=== PATIENT | male | born 1965 | race Caucasian/White ===

== ENCOUNTER 2016-07-14 11:38 | Observation (INO) | payer OTHER, MEDICARE, BC ==
[~2016-07-14] VITALS: Ht 170.2 cm; Wt 160.0 kg
[~2016-07-14 11:38] MED LIST: AMLO5TAB22 PO; FLUT1SPR9 EACH NARE; GLIP10TA6 PO; HYDR10SO PO; LANTINJ SQ; LOSA50TA PO; METF1000 PO; METH500T3 PO; METO50TA PO; MOBI15TA PO; NOVOINJ3 SQ; PRAV40 PO; SERT-129 PO; SPIR50TA21 PO; TAB-TAB PO
[2016-07-14] MEDS ORDERED: ASPIRIN 81 MG CHEW TAB CHEW ONE (12:15)
[2016-07-14 12:20] LABS: AUTOMATED NEUTROPHIL # 3.4 TH/MM3 (1.8-7.7); BASOPHIL % 0.4 % (0.0-2.0); EOSINOPHIL # 0.1 TH/MM3 (0-0.4); EOSINOPHIL % 1.8 % (0.0-4.0); HEMATOCRIT 40.7 % (39.0-51.0); HEMO FLAGS DIFF FINAL; LYMPH % 26.3 % (9.0-44.0); LYMPHOCYTE # 1.4 TH/MM3 (1.0-4.8); MEAN CELL VOLUME 88.6 FL (80.0-100.0); MEAN CORPUSCULAR HEMOGLOBIN 29.6 PG (27.0-34.0); MEAN CORPUSCULAR HGB CONC 33.4 % (32.0-36.0); MONO % 8.6 % (0.0-8.0); NEUT % 62.9 % (16.0-70.0); PLATELET COUNT 185 TH/MM3 (150-450); RED BLOOD COUNT 4.59 MIL/MM3 (4.50-5.90); WHITE BLOOD COUNT 5.4 TH/MM3 (4.0-11.0)
[2016-07-14 12:30] LABS: APTT (PATIENT) 22.5 SEC (24.3-30.1); PROTHROMBIN TIME - PATIENT 10.5 SEC (9.8-11.6)
[2016-07-14 12:49] LABS: ANION GAP 11 MEQ/L (5-15); BICARBONATE 23.9 MEQ/L (21.0-32.0); BLOOD UREA NITROGEN 17 MG/DL (7-18); CHLORIDE 96 MEQ/L (98-107); CREATINE KINASE 140 U/L (39-308); GLOMERULAR FILTRATION RATE 60 ML/MIN (>89); SODIUM (NA) 131 MEQ/L (136-145)
[2016-07-14 12:58] LABS: POTASSIUM 4.6 MEQ/L (3.5-5.1)
[2016-07-14 13:11] LABS: CKMB 1.1 NG/ML (0.5-3.6)
--- NOTE | 2016-07-14 13:14 | RADRPT ---
EXAM DATE/TIME: 07/14/2016 11:47 [facility] COMPARISON: No previous studies available for comparison. INDICATIONS : Chest pain, sweating and shortness of breath. MEDICAL HISTORY : Diabetic. SURGICAL HISTORY : Cholecystectomy. GB removed 4 months ago. ENCOUNTER: Initial ACUITY: 2 weeks PAIN SCORE: 4/10 LOCATION: Bilateral chest FINDINGS: A single view of the chest demonstrates the lungs to be symmetrically aerated without evidence of mas s, infiltrate or effusion. The cardiomediastinal contours are unremarkable. Osseous structures are intact. CONCLUSION: 1. No acute findings. No effusion or pneumothorax. Tarik James MD on July 14, 2016 at 13:08 Board Certified Radiologist. This report was verified electronically.
[2016-07-14] MEDS ORDERED: SODIUM CHLOR 0.9% 1000 ML INJ 1,000 ML IV SCH (14:07)
--- NOTE | 2016-07-14 14:07 | PD ---
HPI Chief Complaint: Chest Pain Time Seen by Provider: 14:07 Travel History International Travel<30 days: No Contact w/Intl Traveler<30days: No Traveled to known affect area: No History of Present Illness HPI 51-year-old male with a history of hypertension, hyperlipidemia, diabetes, NILAY presents to the emergency department for evaluation of chest pain. 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 States that the tightness improved when he rested. He states that he was sent here by his physician for evaluation of chest pain. He states that he has had similar episodes of chest tightness for the past month they have become more frequent. States that he has associated lightheadedness, nausea and shortness of breath. He denies any fever, chills, vomiting, diarrhea, constipation, abdominal pain, swelling of the extremities. States that he also has had right lower back pain for the past week, states he was seen at [facility] last week for this back pain and had labs and a CT that were unremarkable. Last stress test was 2 years ago here at our facility. He has never had a cardiac catheterization, denies any history of NM. No other complaints. PFSH Past Medical History Heart Rhythm Problems: No Cancer: No Cardiovascular Problems: Yes (HTN) High Cholesterol: Yes Diabetes: Yes Patient Takes Glucophage: Yes Endocrine: Yes Gastrointestinal Disorders: Yes (BARRETTS ESOPHAGUS, GALLSTONES) Genitourinary: No Hepatitis: No Hiatal Hernia: Yes (REPAIRED) Hypertension: Yes Immune Disorder: No Medical other: Yes (HX FATTY LIVER) Musculoskeletal: Yes (CHRONIC LUMBAR PAIN,) Neurologic: No Psychiatric: Yes Reproductive: No Respiratory: Yes (SLEEP APNEA) Sleep Apnea: Yes (has a cpap machine at home) Thyroid Disease: No Tetanus Vaccination: > 5 Years Past Surgical History Abdominal Surgery: Yes (APPY, HIATAL HERNIA REPAIR) Appendectomy: Yes Body Medical Devices: NONE Cardiac Surgery: No Ear Surgery: No Endocrine Surgery: No Eye Surgery: No Genitourinary Surgery: No Oral Surgery: Yes (TONSILLECTOMY) Thoracic Surgery: No Tonsillectomy: Yes Other Surgery: Yes Social History Alcohol Use: No Tobacco Use: No Substance Use: No Allergies-Medications (Allergen,Severity, Reaction): Coded Allergies: Morphine (Verified Allergy, Severe, 07/14/16) Bee Sting (Verified Allergy, Unknown, 07/14/16) Penicillin (Verified Allergy, Unknown, HIVES , DIFF BREATHING, 07/14/16) Reported Meds & Prescriptions Reported Meds & Active Scripts Active Reported Atorvastatin (Atorvastatin Calcium) 40 Mg Tab 40 Mg PO HS Metoprolol Tartrate 25 Mg Tab 25 Mg PO BID Albuterol Neb (Albuterol Sulfate) 2.5 Mg/3 Ml Neb 2.5 Mg NEB BID PRN While awake Co Q-10 (Coenzyme Q10 (Ubidecarenone)) 200 Mg Cap 200 Mg PO DAILY Curcumin (Turmeric (Curcuma Longa) (Bulk) 1 Pow Pow 1,000 Mg PO DAILY Vitamin D-3 (Cholecalciferol) 1,000 Unit Tab 1,000 Units PO DAILY Aspirin 81 Mg Tabdr 81 Mg PO DAILY C 1000 (Ascorbic Acid) 1,000 Mg Tab 1,000 Mg PO DAILY Cinnamon 500 Mg Tab 1,000 Mg PO DAILY Percocet (Oxycodone-Acetaminophen) 5-325 mg Tab 1 Tab PO Q6H PRN Magnesium 400 Mg Tab 800 Mg PO DAILY Fish Oil 1000 mg ([place]-3 Fatty Acids) 1 Cap Cap 1,000 Mg PO DAILY Vitamin E 1,000 Unit Cap 1,000 Units PO DAILY B-12 (Cyanocobalamin) 100 Mcg Tab 400 Mcg PO DAILY Voltaren Topical (Diclofenac Topical) 1% Gel 4 Gm TOPICAL HS Spironolactone 50 Mg Tab 50 Mg PO DAILY Cymbalta DR (Duloxetine HCl) 60 Mg Capdr 60 Mg PO BID Novolog Inj (Insulin Aspart) 1,000 Unit/10 Ml Vial 35 Units SQ TIDAC Multi Vitamin (Multiple Vitamin) 1 Tab Tab 1 Tab PO DAILY Lortab (Hydrocodone-Acetaminophen) 10-325 Mg Tab 1 Tab PO Q4H PRN Metformin ER (Metformin HCl) 1,000 Mg Archie 1,000 Mg PO BID With evening meal Robaxin (Methocarbamol) 500 Mg Tab 1,000 Mg PO TID Mobic (Meloxicam) 15 Mg Tab 15 Mg PO DAILY Losartan (Losartan Potassium) 100 Mg Tab 200 Mg PO DAILY Lantus Solostar Pen Inj (Insulin Glargine) 300 Unit/3 Ml Pen 45 Units SQ HS Flonase Allergy Relief Nasal [place] (Fluticasone Nasal [place]) 50 Mcg/Act [place] 1 [place] EACH NARE BID Amlodipine (Amlodipine Besylate) 10 Mg Tab 10 Mg PO DAILY Review of Systems Except as stated in HPI: all other systems reviewed are Neg Physical Exam Narrative GENERAL: Morbidly obese male patient in no acute distress. SKIN: Warm and dry. HEAD: Normocephalic and atraumatic. EYES: No injection, drainage, or hyphema noted. PERRLA. EOMI. ENT: No nasal drainage noted. Oropharynx is clear. NECK: Supple and the trachea is midline. CARDIOVASCULAR: Regular rate and rhythm. RESPIRATORY: Breath sounds are equal bilaterally with no accessory muscle use, wheezing, rhonchi, or crackles. GASTROINTESTINAL: Abdomen is soft, non-tender, and nondistended. MUSCULOSKELETAL: No obvious deformities, swelling, cyanosis, or ecchymosis is present throughout the upper and lower extremities. Patient has full range of motion without any signs of neurovascular compromise. BACK: Mild tenderness to palpation of right lumbar paraspinal muscle region. No obvious deformities, bony point tenderness, or crepitus noted throughout the thoracic and lumbar vertebrae. NEUROLOGICAL: Awake, alert, and oriented. Normal speech and gait. Cranial nerves are grossly intact. Data Data Last Documented VS Vital Signs Date Time Temp Pulse Resp B/P Pulse Ox O2 Delivery O2 Flow Rate FiO2 07/14/16 15:45 98.6 64 18 134/72 98 Room Air Orders Electrocardiogram (07/14/16 11:44) Complete Blood Count With Diff (07/14/16 11:44) Basic Metabolic Panel (Bmp) (07/14/16 11:44) Ckmb (Isoenzyme) Profile (07/14/16 11:44) Troponin I (07/14/16 11:44) Chest, Single Ap (07/14/16 11:44) B-Type Natriuretic Peptide (07/14/16 11:56) Magnesium (Mg) (07/14/16 11:56) Prothrombin Time / Inr (Pt) (07/14/16 11:56) Act Partial Throm Time (Ptt) (07/14/16 11:56) Aspirin Chew (Aspirin Chew) (07/14/16 12:15) CKMB (07/14/16 12:03) CKMB% (07/14/16 12:03) Lipase (07/14/16 14:06) Insulin Human Regular Inj (Novolin R Inj (07/14/16 14:15) Insulin Aspart Inj (Novolog Inj) (07/14/16 14:15) Sodium Chlor 0.9% 1000 Ml Inj (Ns 1000 M (07/14/16 14:07) Aspirin Chew (Aspirin Chew) (07/14/16 14:15) Ondansetron Inj (Zofran Inj) (07/14/16 14:30) Acetamin-Hydrocod 325-10 Mg ([place] 10-32 (07/14/16 15:45) Labs Laboratory Tests Test 07/14/16 12:03 White Blood Count 5.4 TH/MM3 Red Blood Count 4.59 MIL/MM3 Hemoglobin 13.6 GM/DL Hematocrit 40.7 % Mean Corpuscular Volume 88.6 FL Mean Corpuscular Hemoglobin 29.6 PG Mean Corpuscular Hemoglobin 33.4 % Concent Red Cell Distribution Width 14.0 % Platelet Count 185 TH/MM3 Mean Platelet Volume 9.5 FL Neutrophils (%) (Auto) 62.9 % Lymphocytes (%) (Auto) 26.3 % Monocytes (%) (Auto) 8.6 % Eosinophils (%) (Auto) 1.8 % Basophils (%) (Auto) 0.4 % Neutrophils # (Auto) 3.4 TH/MM3 Lymphocytes # (Auto) 1.4 TH/MM3 Monocytes # (Auto) 0.5 TH/MM3 Eosinophils # (Auto) 0.1 TH/MM3 Basophils # (Auto) 0.0 TH/MM3 CBC Comment DIFF FINAL Differential Comment Prothrombin Time 10.5 SEC Prothromb Time International 1.0 RATIO Ratio Activated Partial 22.5 SEC Thromboplast Time Sodium Level 131 MEQ/L Potassium Level 4.6 MEQ/L Chloride Level 96 MEQ/L Carbon Dioxide Level 23.9 MEQ/L Anion Gap 11 MEQ/L Blood Urea Nitrogen 17 MG/DL Creatinine 1.26 MG/DL Estimat Glomerular Filtration 60 ML/MIN Rate Random Glucose 390 MG/DL Calcium Level 9.5 MG/DL Magnesium Level 1.7 MG/DL Total Creatine Kinase 140 U/L Creatine Kinase MB 1.1 NG/ML Troponin I LESS THAN 0.02 NG/ML B-Type Natriuretic Peptide 14 PG/ML Lipase 238 U/L MDM Medical Decision Making Medical Screen Exam Complete: Yes Emergency Medical Condition: Yes Differential Diagnosis ACS versus angina versus pleurisy versus hyperglycemia versus dehydration Narrative Course 51-year-old male presents to the emergency department for evaluation of chest tightness with exertion. Patient is afebrile, vital signs are stable. Labs were done per protocol in triage. EKG shows normal sinus rhythm with no acute ST elevations or depressions. CBC is unremarkable. CMP shows hyperglycemia with a glucose of 390. Troponin is less than 0.02. Coags are unremarkable. Lipase is within normal limits. Patient is given 6 units of regular insulin IV, 10 units of insulin aspart subcutaneously and a liter of fluid. He is also given aspirin and Zofran. Patient's blood sugar has come down to 290. He has remained stable and without complaint while here in the ED. He will be admitted to chest pain center for repeat EKG's, cardiac enzymes and possible stress testing. I discussed the case with my attending physician Dr. Schroeder who is aware of the patients history, physical examination findings, and treatment plan. Diagnosis Primary Impression: Chest pain Qualified Code: R07.9 - Chest pain, unspecified type Additional Impression: Poorly controlled diabetes mellitus Admitting Information Admitting Physician Requests: Sally Sanders Jul 14, 2016 14:07
[2016-07-14] MEDS ORDERED: ASPIRIN 81 MG CHEW TAB PO ONE (14:15)
[2016-07-14] MEDS ORDERED: INSULIN HUMAN REGULAR 1,000 UNITS/10 ML VIAL IV PUSH ONE (14:15)
[2016-07-14] MEDS ORDERED: INSULIN ASPART 1,000 UNITS/10 ML VIAL SQ ONE (14:15)
[2016-07-14] MEDS ORDERED: ONDANSETRON HCL 4 MG/2 ML VIAL IV PUSH ONE (14:30)
[2016-07-14] MEDS ORDERED: ROBA500T PO (14:44)
[2016-07-14] MEDS ORDERED: METF-382 PO (14:44)
[2016-07-14] MEDS ORDERED: MOBI15TA PO (14:44)
[2016-07-14] MEDS ORDERED: AMLO10TA2 PO (14:44)
[2016-07-14] MEDS ORDERED: LANTINJ SQ (14:44)
[2016-07-14] MEDS ORDERED: LOSA100T PO (14:44)
[2016-07-14] MEDS ORDERED: FLUT1SPR5 EACH NARE (14:44)
[2016-07-14] MEDS ORDERED: MULT-135 PO (14:48)
[2016-07-14] MEDS ORDERED: HYDR-3535 PO (14:48)
[2016-07-14] MEDS ORDERED: NOVOLOGP2 SQ (14:48)
[2016-07-14] MEDS ORDERED: OMEG100037 PO (14:54)
[2016-07-14] MEDS ORDERED: PERC5TAB12 PO (14:54)
[2016-07-14] MEDS ORDERED: CYMB60CA PO (14:54)
[2016-07-14] MEDS ORDERED: DICL1GEL TOPICAL (14:54)
[2016-07-14] MEDS ORDERED: MAGN1TAB14 PO (14:54)
[2016-07-14] MEDS ORDERED: VITA10006 PO (14:54)
[2016-07-14] MEDS ORDERED: B-12100T PO (14:54)
[2016-07-14] MEDS ORDERED: SPIR50TA PO (14:54)
[2016-07-14] MEDS ORDERED: [UNRECOGNIZED DRUG - CODE] PO (14:56)
[2016-07-14] MEDS ORDERED: CINN500T PO (14:56)
[2016-07-14] MEDS ORDERED: CO Q200C PO (14:58)
[2016-07-14] MEDS ORDERED: VITA10003 PO (14:58)
[2016-07-14] MEDS ORDERED: CURCPOW PO (14:58)
[2016-07-14] MEDS ORDERED: ASPI1TAB69 PO (14:58)
[2016-07-14] MEDS ORDERED: ALBU0.08 NEB (14:59)
[2016-07-14] MEDS ORDERED: METO25TA3 PO (15:00)
[2016-07-14] MEDS ORDERED: ATOR40TA16 PO (15:01)
[2016-07-14 15:45] VITALS: BP 134/72; TEMP 98.6; O2SAT 98
[2016-07-14] MEDS ORDERED: ACETAMINOPHEN/HYDROcodone 325 MG/10 MG TAB PO ONE (15:45)
--- NOTE | 2016-07-14 16:19 | EKG ---
Date Performed: 07/14/2016 Time Performed: 11:46:15 PTAGE: 51 years EKG: Sinus rhythm NORMAL ECG NO SIGNIFICANT CHANGE FROM PRIOR ELECTROCARDIOGRAM. PREVIOUS TRACING : 12/16/2015 10.16 DOCTOR: Delfino Richardson Interpretating Date/Time 07/14/2016 16:19:06
[2016-07-14] MEDS ORDERED: GLUCAGON 1 MG/ML VIAL IM/SQ PRN (16:30)
[2016-07-14] MEDS ORDERED: ALPRAZolam 0.25 MG TAB PO PRN (16:30)
[2016-07-14] MEDS ORDERED: ACETAMINOPHEN/HYDROcodone 325 MG/10 MG TAB PO PRN (16:30)
[2016-07-14] MEDS ORDERED: SODIUM CHLORIDE 0.9% FLUSH 5 ML FLUSH IVF PRN (16:30)
[2016-07-14] MEDS ORDERED: DEXTROSE 50% IN WATER 50 ML VIAL(D50) IV PRN (16:30)
[2016-07-14] MEDS ORDERED: ACETAMINOPHEN 500 MG CPLT PO PRN (16:30)
[2016-07-14 17:57] LABS: CREATINE KINASE 143 U/L (39-308)
[2016-07-14 18:09] LABS: CKMB 0.9 NG/ML (0.5-3.6)
[2016-07-14] MEDS: INSULIN ASPART SUPPLEMENTAL SCALE SQ SCH (18:25)
[2016-07-14 18:42] LABS: BLOOD, URINE NEG (NEG); COMMENT (UR) CULT NOT INDICATED; CULTURE IF INDICATED CULT NOT INDICATED; GLUCOSE,URINE 1000 mg/dL (NEG); KETONE, URINE NEG (NEG); NITRITE,URINE NEG (NEG); SQUAMOUS EPITHELIAL CELL URINE <1 /hpf (0-5); URINE COLOR LIGHT-YELLOW (YELLW/STRAW)
[2016-07-14 19:30] VITALS: BP 139/73; PULSE 70; RESP 18; TEMP 96.4; O2SAT 95
[2016-07-14 19:56] VITALS: PULSE 65
[2016-07-14] MEDS: METHOCARBAMOL 500 MG TAB PO SCH (20:55)
[2016-07-14] MEDS: SODIUM CHLORIDE 0.9% FLUSH 5 ML FLUSH IVF SCH (20:55)
[2016-07-14] MEDS: DULoxetine HCl DR 60 MG CAP PO SCH (20:55)
[2016-07-14] MEDS: METOPROLOL TARTRATE 25 MG TAB PO SCH (20:56)
[2016-07-14] MEDS: ONDANSETRON HCL 4 MG/2 ML VIAL IV PRN (20:56)
[2016-07-14] MEDS ORDERED: ALPRAZolam 0.5 MG TAB PO ONE (21:00)
[2016-07-14] MEDS ORDERED: traMADol HCL 50 MG TAB PO ONE (21:00)
[2016-07-14] MEDS ORDERED: ATORVASTATIN 40 MG TAB PO SCH (21:00)
[2016-07-14 22:33] VITALS: PULSE 63
[2016-07-14 23:55] VITALS: BP 135/78; PULSE 55; RESP 18; TEMP 95.4; O2SAT 98
[2016-07-15 02:23] VITALS: PULSE 54
[2016-07-15 04:24] VITALS: BP 134/72; PULSE 56; RESP 18; TEMP 96; O2SAT 98
[2016-07-15 05:14] LABS: CREATINE KINASE 70 U/L (39-308)
[2016-07-15] MEDS: INSULIN ASPART SUPPLEMENTAL SCALE SQ SCH (06:27)
[2016-07-15 07:59] VITALS: BP 117/59; PULSE 60; RESP 18; TEMP 97.7; O2SAT 97
[2016-07-15 08:00] VITALS: PULSE 55
[2016-07-15] MEDS ORDERED: SODIUM CHLOR 0.9% 1000 ML INJ 1,000 ML IV SCH (08:00)
--- NOTE | 2016-07-15 08:02 | EKG ---
Date Performed: 07/14/2016 Time Performed: 15:39:14 PTAGE: 51 years EKG: Sinus rhythm NORMAL ECG Since PREVIOUS TRACING , no significant change noted PREVIOUS TRACIN07/14/2016 11.46 DOCTOR: Swetha Leung Interpretating Date/Time 07/15/2016 08:00:29
--- NOTE | 2016-07-15 08:02 | EKG ---
Date Performed: 07/14/2016 Time Performed: 19:58:31 PTAGE: 51 years EKG: Sinus rhythm NORMAL ECG Since PREVIOUS TRACING , no significant change noted PREVIOUS TRACIN07/14/2016 15.39 DOCTOR: Swetha Leung Interpretating Date/Time 07/15/2016 08:01:08
[2016-07-15] MEDS: METOPROLOL TARTRATE 25 MG TAB PO SCH (08:03)
[2016-07-15] MEDS: METHOCARBAMOL 500 MG TAB PO SCH (08:09)
[2016-07-15] MEDS: DULoxetine HCl DR 60 MG CAP PO SCH (08:14)
[2016-07-15] MEDS: SODIUM CHLORIDE 0.9% FLUSH 5 ML FLUSH IVF SCH (08:16)
--- NOTE | 2016-07-15 08:43 | MH ---
cc: JOSE LUIS SWANN MD DATE OF ADMISSION: 07/14/2016 CHIEF COMPLAINT: Chest pain. HISTORY OF PRESENT ILLNESS: This is a 51 year-old male who presents to the emergency department with complaints of chest discomfort and shortness of breath. The patient had a history of hypertension, hyperlipidemia, uncontrolled diabetes. He states that for the last two weeks he has had left sided dull discomfort. Since that time he has also become a little tight. It lasts about 30 minutes. He initially stated that it is not exertional but states that it will also occur when he is pushing a vacuum or such. But states that it is nothing really exertional. He is short of breath with it, He also becomes nauseous and diaphoretic at times. He also states that he becomes diaphoretic without having the discomfort in his chest. [facility] seeing his factory assembler when he was discussing the chest discomfort and he was told to come to the emergency room. He states that he had a cardiac work up in the past and believes that it was a couple of years ago. I have reviewed his records, he had a nonischemic [place] scan in July 21, 2014 at this facility. He denies recent illnesses, he denies fevers or chills. PAST MEDICAL HISTORY: 1. Hypertension. 2. Diabetes. 3. Hyperlipidemia. 4. Pulmonary hypertension. 5. Sleep apnea. 6. Obesity. 7. Denies history of coronary artery disease. FAMILY HISTORY: States that his brother has coronary artery disease and has had multiple stents beginning in his 40s. SOCIAL HISTORY: Lifetime nonsmoker, denies alcohol or illicit drugs. He has been for 29 years. 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 PAST SURGICAL HISTORY: 1. Cholecystectomy four months ago. 2. Appendectomy. 3. Hernia repair. 4. Tonsillectomy. ALLERGIES MORPHINE PENICILLIN BEE STINGS MEDICATIONS: The list is provided by the [facility] and includes; 1. Losartan 2. Cymbalta 3. Albuterol nebulizer. 4. Metoprolol tartrate. 5. Metformin 6. Methocarbamol 7. Flonase 8. Amlodipine 9. Atorvastatin. 10. Insulin 11. Spironolactone 12. Multivitamin 13. Aspirin. 14. Meloxicam 15. Lortab 16. Percocet 17. Multiple supplements and vitamins. REVIEW OF SYSTEMS GENERAL: Denies fevers or chills. Denies recent illnesses. HEAD, EYES, EARS, NOSE, AND THROAT: Denies headache, earache, sore throat, difficulty swallowing. CARDIOVASCULAR SYSTEM: Described the discomfort as mentioned above. There is diaphoresis at times. Denies sensation of heart beating rapidly or irregularly. Denies syncope. RESPIRATORY: He has been short of breath. Denies coughing, wheezing or hemoptysis. GASTROINTESTINAL: There is a nausea but denies emesis. Denies abdominal pain. Denies diarrhea, constipation or blood in the stool. MUSCULOSKELETAL: Denies joint pain or edema. Denies calf pain or edema. NEUROVASCULAR: Denies headache or dizziness. ENDOCRINE: Denies polyuria or polydipsia. HEMATOLOGIC: Denies easy bruising. SKIN: Denies rash or itching. PHYSICAL EXAMINATION: Vital signs in the emergency department, initially included a blood pressure of 134/72. Heart rate 64, respirations 18, pulse oximetry 98% on room air and he is was afebrile. IN GENERAL: The patient is seen in the examination room in no apparent distress. He is very pleasant. He speaks in clear and complete sentences. HEAD, EYES, EARS, NOSE, AND THROAT: Head is Atraumatic, normocephalic. NECK: The neck is supple without lymphadenopathy. The trachea is midline. No jugular venous distention or carotid bruits. CARDIOVASCULAR SYSTEM: Regular rate and rhythm without murmur, gallop or rub. RESPIRATORY: Lungs are clear to auscultation bilaterally. No wheezing, rales or rhonchi. No reproducible chest wall discomfort. No use of accessory muscles. GASTROINTESTINAL: Abdomen is obese, no tenderness. Normal bowel sounds in all quadrants. MUSCULOSKELETAL: The patient is moving upper and lower extremities freely. No joint tenderness or edema. No calf tenderness or edema. No tori sign. Strong pulses in the upper and lower extremities. NEUROVASCULAR: The patient is alert and oriented. Cranial nerves II through XII intact, no focal deficits and speech is clear. SKIN: No rashes, turgor is normal. LABS: The complete blood count is unremarkable. Coagulation studies are unremarkable. A basic metabolic profile has the glucose elevated at 390, glomerular filtration rate decreased at 60. Sodium level and chloride level are decreased at 131 and 96. Otherwise unremarkable basic metabolic profile. Magnesium level is normal at 1.7. B-type natriuretic peptide is normal at 14, lipase is normal at 238, the first set of cardiac enzymes are normal. RADIOLOGIC: Single view chest x-ray; read by radiologist as no acute findings. No effusion or pneumothorax. Electrocardiogram; initial electrocardiogram has sinus rhythm without significant ST segment depression/elevations. ASSESSMENT AND PLAN: 1. Chest pain. The patient will continue to have serial cardiac enzymes and electrocardiogram for ruling out purposes. He has been seen by Dr. Jose Luis Swann of Cardiology in the chest pain center. While he was examining the patient the patient complained of having another episode of discomfort while the nurse is flushing his IV. An Electrocardiogram was being obtained at the same time and was normal. There were no ST changes. The patient will spend the night in the chest pain center, if he does rule out he will likely proceed with a lexiscan in the morning. We will also get a D-Dimer and if that is normal we will address at this time. If the stress test is normal in the morning he will be discharged home and instructed to follow up with the local physician at the [facility]. 2. Hypertension; we will continue the current medications. 3. Diabetes. Will be on sliding scale insulin coverage while in the chest pain center. He will be on diabetic diet which he also needs to follow on outpatient basis. He should resume his medications at home when he is discharged but he again needs to follow diabetic diet and exercise. 4. Hyperlipidemia, continue current medications. 5. Sleep apnea; the patient will bringing his CPAP device. 6. The patient has been counseled on the importance of diet, exercise and weight loss. 7. Gastroesophageal reflux disease; the patient is to continue current medications. 8. The patient is stable at this time. He is agreeable to this plan. DICTATED BY: Tyler Lamas PA-C MD ROMY Crystal/anjel /4:52 PM /8:42 AM
[2016-07-15] MEDS ORDERED: ASPIRIN 325 MG TAB PO SCH (09:00)
[2016-07-15] MEDS ORDERED: PANTOPRAZOLE SOD 40 MG DELAYED RELEASE TAB PO SCH (09:00)
[2016-07-15] MEDS ORDERED: SPIRONOLACTONE 50 MG TAB PO SCH (09:00)
[2016-07-15] MEDS ORDERED: MULTIVITAMIN TAB PO SCH (09:00)
[2016-07-15] MEDS ORDERED: REGADENOSON INJ 0.4 MG/5 ML SYR ONE (09:12)
--- NOTE | 2016-07-15 10:52 | RADRPT ---
EXAM DATE/TIME: 07/15/2016 08:38 [facility] COMPARISON: No previous studies available for comparison. INDICATIONS : Chest tightness for 1 day. Angina. DOSE: 35 mCi Tc99m Myoview at stress. 11 mCi Tc99m Myoview at rest. 0.4 mg Lexiscan STRESS SYMPTOMS: Chest pain, stomach pressure, nausea and dry mouth. EJECTION FRACTION: 51% MEDICAL HISTORY : Diabetes mellitus type 2. Hypertension. Hypercholesterolemia. Barretts esophagus. SURGICAL HISTORY : Appendectomy. Inguinal hernia repair. ENCOUNTER: Initial ACUITY: 1 day PAIN SCALE: 3/10 LOCATION: Bilateral chest TECHNIQUE: The patient underwent pharmacologic stress with infusion of prescribed dose. Continuous ECG tracing was monitored during stress. Gated SPECT imaging was performed after stress and conventional SPECT i maging was performed at rest. The examination was performed on a SPECT/CT scanner, both attenuation and non-corrected datasets were reviewed. FINDINGS: DISTRIBUTION: The maximum perfused segment at stress is in the septal wall. PERFUSION STUDY: The pattern of perfusion at stress demonstrates a perfusion defect centered in the lateral wall with some reversibility. GATED STUDY: There is intact wall motion and thickening without hypokinetic or dyskinetic segments. CONCLUSION: 1. Reversibility in the lateral wall left ventricle most characteristic of ischemia. 2. Ejection fraction within normal limits at 51% but decreased from previous value of greater than 70 % in July 2014. RISK CATEGORY: High (>3% Annual Mortality Rate) Tarik James MD on July 15, 2016 at 10:28 Board Certified Radiologist. This report was verified electronically.
[2016-07-15] MEDS: ONDANSETRON HCL 4 MG/2 ML VIAL IV PRN (10:59)
[2016-07-15] MEDS ORDERED: traMADol HCL 50 MG TAB PO PRN (11:00)
[2016-07-15] MEDS ORDERED: LOSARTAN 50 MG TAB PO SCH (11:00)
[2016-07-15 11:32] VITALS: BP 133/80; PULSE 71; RESP 18; TEMP 98.5; O2SAT 95
[2016-07-15] MEDS ORDERED: HEPARIN-NS/PF INJ 500 ML ONE (12:26)
[2016-07-15] MEDS ORDERED: MIDAZOLAM HCL 2 MG/2 ML VIAL ONE ×2 (12:33→13:20)
[2016-07-15] MEDS ORDERED: VERAPAMIL HCL 5 MG/2 ML VIAL ONE (12:42)
[2016-07-15] MEDS ORDERED: HEPARIN SODIUM - IV 10,000 UNITS/10 ML VIAL ONE (12:42)
--- NOTE | 2016-07-15 13:14 | MB ---
cc: JAMARCUS ECHOLS DATE OF 1965 INTERVENTIONAL CARDIOLOGY CONSULTATION DATE OF CONSULTATION July 15, 2016 REASON FOR CONSULTATION Positive stress test, left-sided chest pain. HISTORY OF PRESENT ILLNESS A 51-year-old male with past medical history significant for hypertension, diabetes, hyperlipidemia, morbid obesity who presented to the emergency department with complaint of chest discomfort and shortness of breath. Here in the emergency department he was seen by rubber covering machine operator, Dr. Elie Swann, who recommended to rule him out by enzymes as well as to do a myocardial perfusion stress test. The patient was ruled out by enzymes. He underwent a myocardial stress test that revealed a reversible lateral wall defect suggestive of ischemia and ejection fraction of 51%. Thus, Interventional Cardiology has been consulted for further management and evaluation. Currently the patient complains still of having some chest discomfort, 3 out of 10. It is non- radiating and not associated with shortness of breath or exertion. REVIEW OF SYSTEMS Negative except for what is mentioned in the HPI. PAST MEDICAL HISTORY 1. Hypertension. 2. Diabetes. 3. Hyperlipidemia. 4. Pulmonary hypertension. 5. Sleep apnea. 6. Obesity FAMILY HISTORY Brother with CAD and multiple stents in his 40s. SOCIAL HISTORY He does not smoke. He denies alcohol or illicit drug use. PAST SURGICAL HISTORY 1. Cholecystectomy. 2. Appendectomy. 3. Hernia repair. 4. Tonsillectomy. ALLERGIES MORPHINE. PENICILLIN. BEE STINGS. MEDICATIONS 1. Losartan. 2. Cymbalta. 3. Albuterol. 4. Metoprolol. 5. Metformin. 6. Flonase. 7. Amlodipine. 8. Atorvastatin. 9. Insulin. 10. Spironolactone. 11. Multivitamin. 12. Aspirin. 13. Meloxicam. 14. Lortab. 15. Percocet. 16. Vitamins. PHYSICAL EXAMINATION Vital Signs: Temperature of 98.5, pulse 71, respiratory rate 18, blood pressure 133/80 with an O2 sat of 95%. General: He is awake, alert, oriented x 3, in no acute distress. He complains of right-sided flank pain which for him is chronic. HEENT/NECK: There is no carotid bruits. Difficult to see JVD because of morbid obesity. Heart: Regular rate and rhythm. No murmurs, rubs or gallops appreciated. Lungs: Clear to auscultation bilaterally. Abdomen: Soft, nontender, nondistended. Positive bowel sounds. Obese. Extremities: There is no cyanosis, no edema and there are pulses throughout. LABORATORY DATA Hemoglobin 13, hematocrit of 40, platelet count of 185. INR of 1. Troponins negative, less than 0.02 x 3. BNP of 14, lipase of 238. EKG Normal sinus rhythm with no ischemic changes. Myocardial perfusion stress test as mentioned. He has a reversible defect in his lateral wall with an ejection fraction estimated to be 51% which is decreased from previous one done last year that was 70%. ASSESSMENT AND PLAN A 51-year-old male with cardiac risk factors that include hypertension, diabetes , obesity, hyperlipidemia and presents to the emergency department with chest discomfort. He underwent a stress test following finding reversible ischemia in his other wall. At this point I would recommend for him to undergo a left heart cath to further assess his coronary artery disease. The risks and benefits of left heart cath/intervention including but not limited to stroke, neurovascular trauma, HI, emergent CABG and have been explain to the patient and he is willing to proceed. We will keep the patient n.p.o. and will schedule for a left heart cath today. In the meantime continue aggressive medical management for coronary artery disease. Further therapies to be determined. Jamarcus Echols MD SHEET COMBINING OPERATOR/SSB /12:35 PM /1:00 PM DAVID
[2016-07-15] MEDS ORDERED: LIDOCAINE HCL 1% PF 30 ML VIAL ONE (13:23)
[2016-07-15] MEDS ORDERED: IOHEXOL 350 MG/ML 100 ML BTL (for Cath Lab) OTHER ONE (14:00)
[2016-07-15] MEDS ORDERED: ATROPINE SULFATE 1 MG/ML VIAL IV PRN (14:15)
[2016-07-15] MEDS ORDERED: MISC INFORMATION XX ONE (14:15)
[2016-07-15] MEDS ORDERED: SODIUM CHLORIDE 0.9% FLUSH 5 ML FLUSH IVF PRN (14:15)
[2016-07-15] MEDS ORDERED: ONDANSETRON HCL 4 MG/2 ML VIAL IV PRN (14:15)
--- NOTE | 2016-07-15 14:37 | MA ---
cc: NGHIA ECHOLS DATE: July 15, 2016 1965 PROCEDURE PERFORMED 1. Left heart catheterization, 2. Selective right and left coronary angiography. 3. LV gram INDICATIONS Chest pain and positive stress test, high risk. APPROACH Right groin. DESCRIPTION OF PROCEDURE Consents signed, the patient was taken to the [facility] [employer] [employer] in fasting state. The right groin was prepped and draped in sterile fashion, using 1% lidocaine for local anesthesia and a micropuncture kit a 6-[place]oven[place] sheath was inserted into the right common femoral artery, right common femoral artery angiography was performed to confirm position of the sheath. Then selective right and left coronary angiography was performed with a JR-4 and JL-4 diagnostic catheters. Angiography was performed in multiple views. Angled pigtail was used to cross the left ventricle followed by hemodynamics and left ventriculography. The patient tolerated the procedure well without complications. Estimated blood loss was less than 20 ccs. Estimated contrast used was 75 ccs. RESULTS Left ventricle: The left ventricular pressure was 125/15 with an LVEDP of 21. The aortic pressure was 122/88 with a mean of 105. The left ventriculography revealed a symmetrically krystle ventricle with estimated ejection fraction of 60%. There was no gradient upon pullback from the left ventricle to the aorta. Angiography: 1. The right coronary artery is a dominant vessel, it is patent with minimal luminal irregularities, it gives off the PDA which is patent. There is a distal 40% lesion of the PA. 2. The left main is short and patent. 3. The LAD is a transapical vessel. It has minimal luminal irregularities and is patent, nonobstructive CAD. The first diagonal is small and is diffusely diseased 4. Left circumflex is a big vessel measuring more than 4 mm proximally, has minimal luminal irregularities OM, however, it is patent with JOVANI-III flow. CONCLUSION 1. Nonobstructive coronary artery disease 2. Elevated LVEDP 3. Normal LV systolic function. RECOMMENDATIONS 1. Medical management for primary prevention of CAD. 2. Therapeutic life-style changes. 3. Groin site care and IV hydration post cath. 4. Early ambulation Nghia Echols MD COMPLAINT ADJUSTER/TLL /2:00 PM /2:17 PM DAVID
[2016-07-15] MEDS ORDERED: SODIUM CHLORIDE 0.9% FLUSH 5 ML FLUSH IVF SCH (21:00)
--- NOTE | 2016-07-16 14:37 | TR ---
Date Performed: 07/15/2016 Time Performed: 09:17:47 DOCTOR: Swetha Leung DRUG LIST: LOSARTAN AmLODIPINE NITRO CLINICAL HISTORY: CHEST PAIN REASON FOR TEST: Angina REASON FOR ENDING: OBSERVATION: CONCLUSION: Lexiscan stress test was performed under standard four minute protocol. Radionuclid e was injected one minute prior to ending the test. No electrocardiographic abormalities were present to suggest ischemia. Nuclear imaging and interpretation are pending. COMMENTS:
== END 2016-07-15 17:26 | disposition home or self-care (01) ==
LOC: NEPC 11:38 → NEDA 15:48 → NEPFCDU 19:15 → HCIS 07-15 11:51 → HCIN 07-18 10:06 → HCIS 07-18 10:06 → UNDODISOB 07-18 10:07
PROVIDERS: ADMIT Family Medicine; ATTEND Family Medicine
DX: R07.89 Other chest pain (principal); I25.10 Atherosclerotic heart disease of native coronary artery without angina pectoris; I27.2 Other secondary pulmonary hypertension; I10 Essential (primary) hypertension; R94.39 Abnormal result of other cardiovascular function study; E11.65 Type 2 diabetes mellitus with hyperglycemia; E78.5 Hyperlipidemia, unspecified; E78.00 Pure hypercholesterolemia, unspecified; K21.9 Gastro-esophageal reflux disease without esophagitis; K22.70 Barrett's esophagus without dysplasia; G47.33 Obstructive sleep apnea (adult) (pediatric); E66.9 Obesity, unspecified; Z68.43 Body mass index [BMI] 50.0-59.9, adult; Z79.01 Long term (current) use of anticoagulants; Z79.84 Long term (current) use of oral hypoglycemic drugs
CPT/HCPCS: 71010; 78452; 80048; 81001; 82550; 82552; 82948; 83690; 83735; 83880; 84484; 85025; 85379; 85610; 85730; 93005; 93017; 93458; 96372; 96374; 96375; 99285; A9502; C1760; C1769; C1893; G0269; G0378; J1644; J1815; J2250; J2405; J2785; J3010; J7030; Q9967